=== PATIENT | male | born 2000 | race Caucasian/White ===

== ENCOUNTER 2024-02-24 16:45 | Emergency (ER) | payer OTHER, SELFPAY ==
[2024-02-24 16:47] VITALS: BP 123/64
[2024-02-24 17:14] VITALS: BMI 26.2
[2024-02-24 17:20] VITALS: BP 119/61
[2024-02-24 18:08] VITALS: BP 102/67
--- NOTE | 2024-02-24 23:14 | ED.GENMED ---
History of Present Illness
General
Chief Complaint: Head Injury
Source: patient
Exam Limitations: none
Time Seen by Provider: 02/24/24 17:43
Nursing documentation reviewed up to this point in time: agreed with
History of Present Illness
History of Present Illness:
Patient states he hit the top of his head on a metal light bar while running across a stage. No LOC. Complains of headache. ALso notes pain and bruising to his left medial knee. 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
Brought to eD by family for eval.
Past History
Past History
ED Past Medical History: None
ED Past Surgical History: None
Review of Systems
Review of Systems
Allergies reviewed?: Yes
All Other Systems: ROS reviewed and negative except as documented in HPI and ROS
Constitutional: Reports no symptoms
EENT: Reports no symptoms
Respiratory: Reports no symptoms
Cardiac: Reports no symptoms
ABD/GI: Reports no symptoms
Musculoskeletal: Reports joint pain (Pain to left medial knee)
Skin: Reports other (bruising left medial knee)
Neurological: Reports headache
Psychiatric: Reports no symptoms
Phy Exam
General Physical Exam
General Presentation: well appearing and no apparent distress
General age: appears stated age
General Skin: warm and dry
General Habitus: normal
General Mental: alert
General Hydration: appears well hydrated
ENT Exam
ENT Exam: EOMI, TM's normal and neck supple
Eye Exam
Eye Exam: PERRL, EOMI, conjunctiva normal, disc sharp and globe normal
Neurological Exam
Neurological Exam: alert, oriented x3, CN II-XII intact, no motor deficits, no sensory deficits and speech normal
Colon Coma Scale
Eye Opening: Spontaneous
Verbal Response: Oriented
Motor Response: Obeys Commands
GCS Total Score: 15
Mental
Mental Status: oriented to person, oriented to place, oriented to time and usual mental status
Describe Speech: normal speech
Cranial
Cranial Nerves: normal
EOM (CN3/4/6): intact
Motor
Seizure Activity: none
Gait: normal
Tremors: none
Right upper extremity: 4
Right lower extremity: 4
Left upper extremity: 4
Left lower extremity: 4
Bilateral upper extremities: 4
Bilateral lower extremities: 4
Sensory
Sensory Exam: intact
Cerebellar
Cerebellar Function: normal finger to nose, normal heel to dixon and normal Romberg test
Musculoskeletal Exam
Musculoskeletal Exam: full ROM and neuro vasc intact
Skin Exam
Skin Exam: normal color, warm/dry and no rash
Psychiatric Exam
Psychiatric Exam: normal mood/affect
Course
Orders/Labs/Results
Orders:
Orders
02/24/24 18:06
Knee, Left 4 or More Views [CR Knee - Left 4 Or More View*] Urgent
Comment:
Reason For Exam: trauma
Vital Signs
Initial and Last Documented VS:
Initial Vital Signs
Temp Pulse Resp BP Pulse Ox
98.0 F 91 16 123/64 98
02/24/24 16:47 02/24/24 16:47 02/24/24 16:47 02/24/24 16:47 02/24/24 16:47
Last Documented Vital Signs
Temp Pulse Resp BP Pulse Ox
98.0 F 79 16 102/67 98
02/24/24 16:47 02/24/24 18:08 02/24/24 18:08 02/24/24 18:08 02/24/24 18:08
*Radiology
Radiology exam reviewed: radiology read reviewed
*Pulse Oximetry
Patient hypoxic: no
*Critical Care Note
Total Time (30-74mins, 75-104mins- exclusive of procedures): Not Applicable
ED Attending Note
-
Portions of this chart may have been created with voice recognition software.� Occasional wrong word or��sound alike� substitutions may have occurred due to the inherent limitations of voice recognition software.
Discharge Plan
Departure
Patient Disposition: Home (Routine Discharge)
Date of Disposition: 02/24/24
Time of Disposition: 18:54
Patient with high blood pressure during this ER visit?: No
Condition: Good
Covid-19: Not Applicable
Discharge Problem:
Head injury
Instructions: Head Injury in Adults (DC), Using Cold for Pain, Contusion
Referrals:
Jose De Jesus Hameed MD [Active] - Call in 1-3 days for appt
NONE,* [Family Provider] -
Interventions
Interventions:
*Risk Screen - Suicide Last Done: 02/24/24 17:14
*General Assessment Last Done: 02/24/24 17:14
*Neglect/Abuse Screening Last Done: 02/24/24 17:14
ED- Fall Risk Assessment Last Done: 02/24/24 17:14
*ED COVID-19 Vaccine History Last Done: 02/24/24 17:14
*Nursing Disposition Last Done: 02/24/24 19:10
ED- Neurological Assessment Last Done: 02/24/24 19:10
ED-Skin Assessment Last Done: 02/24/24 19:10
Discharge Date and Time
Discharge Date/Time: 02/24/24 19:10
Print Language: PASHTO
Musculoskeletal Injury Exam
Musculoskeletal Injury Exam
Left Medial Knee:
Pain with Movement?: Moderate
Tender to palpation?: Moderate
Soft tissue swelling?: None
External deformity and angulation?: None
Joint effusion?: None
Contusion?: Moderate
Hematoma-local bleeding into tissue?: Mild
Strain- Sprain- Tear (Connective tissue injury)?: None
Crepitus with movement?: No
Joint instability?: No
Malalignment/deformity?: No
Range of motion: Full
Distal skin color and temperature: normal-warm & good color
Capillary Refill: normal
Normal distal neurovascular exam?: Yes
== END 2024-02-24 19:10 | disposition home or self-care (01) ==
LOC: EMR 16:45
PROVIDERS: EMERGENCY PHYSICIAN Emergency Medicine
DX: S09.90XA Unspecified injury of head, initial encounter (principal); W22.8XXA Striking against or struck by other objects, initial encounter; Y93.02 Activity, running
CPT/HCPCS: 99283; 73564

== ENCOUNTER 2024-11-28 22:26 | Emergency (ER) | payer BC, SELFPAY ==
[2024-11-28 22:30] VITALS: BP 125/88
[2024-11-28 23:55] VITALS: BP 125/78
--- NOTE | 2024-11-29 00:12 | ED.GENMED ---
History of Present Illness
General
Chief Complaint: Male Genito-Urinary Symptoms
Source: patient
Exam Limitations: none
Time Seen by Provider: 11/28/24 22:48
Nursing documentation reviewed up to this point in time: agreed with
History of Present Illness
History of Present Illness:
24-year-old male presents emergency ferment due to right testicular pain. He was climbing up a ladder when he began having pain on the right side.
Past History
Past History
ED Past Medical History: None
ED Past Surgical History: None
Social History
Tobacco: Non-smoker
Alcohol: None
Drug: None
Review of Systems
Review of Systems
Allergies reviewed?: Yes
All Other Systems: Not applicable
Constitutional: Reports no symptoms
EENT: Reports no symptoms
Respiratory: Reports no symptoms
Cardiac: Reports no symptoms
ABD/GI: Reports no symptoms
: Reports other (Right testicular pain)
Musculoskeletal: Reports no symptoms
Skin: Reports no symptoms
Neurological: Reports no symptoms
Endocrine: Reports no symptoms
Hematologic/Lymphatic: Reports no symptoms
Psychiatric: Reports no symptoms
Phy Exam
Physical Exam
Physical Exam:
Physical Exam
General: no apparent distress, not acutely ill
Neck: supple. no meningeal signs. normal posterior pharynx
Heart: equal radial pulses.
HEENT: Pupils equal round reactive to light, EOMI
Lungs: no acute respiratory distress.
Abdomen: Nondistended, not tender. no CVAT
Neuro: alert and oriented. no focal neurological deficits
Skin: no rash
Psychiatric: well kept. interactive and cooperative
Extremities: no edema. good distal pulses
Genitourinary Exam Male
Exam Male: circumcised, no CVAT, no discharge, normal external genitalia, normal testicular exam, no evidence of trauma, no lesions, no testicular swelling and no testicular tenderness
Course
Orders/Labs/Results
Orders:
Orders
11/28/24 22:34
US Scrotum Urgent
Comment: rt. testicle
Reason For Exam: rt. sided testicular pain
Vital Signs
Initial and Last Documented VS:
Initial Vital Signs
Temp Resp BP Pulse Ox
98.7 F 16 125/88 98
11/28/24 22:30 11/28/24 22:30 11/28/24 22:30 11/28/24 22:30
Last Documented Vital Signs
Temp Resp BP Pulse Ox
98.7 F 16 125/88 98
11/28/24 22:30 11/28/24 22:30 11/28/24 22:30 11/28/24 22:30
MDM/Problems Addressed
Differential Diagnosis Includes:
Testicular torsion, hernia
MDM/Problems Addressed:
24-year-old male with right testicular pain, no signs of torsion.
*Radiology
Radiology exam reviewed: radiology read reviewed (Scrotal ultrasound normal except small bilateral hydroceles)
*Pulse Oximetry
Patient hypoxic: no
*Critical Care Note
Total Time (30-74mins, 75-104mins- exclusive of procedures): Not Applicable
Patient Management
Social determinants of health affecting care: Living situation
Escalation/DeEscalation of care consider admission/obs:
Admit not indicated
ED Attending Note
-
Portions of this chart may have been created with voice recognition software.� Occasional wrong word or��sound alike� substitutions may have occurred due to the inherent limitations of voice recognition software.
Discharge Plan
Departure
Patient Disposition: Home (Routine Discharge)
Date of Disposition: 11/29/24
Time of Disposition: 00:18
Patient with high blood pressure during this ER visit?: Yes
Condition: Good
Discharge Problem:
Right testicular pain
Instructions: Groin strain, BLOOD PRESSURE
Referrals:
Gabale,Morales D., MD [Active, Urology] - Call in 1-3 days for appt
Interventions
Interventions:
*Risk Screen - Suicide Last Done: 11/28/24 22:30
*General Assessment Last Done: 11/28/24 22:30
*Neglect/Abuse Screening Last Done: 11/28/24 22:30
*ED COVID-19 Vaccine History Last Done: 11/28/24 22:30
Discharge Date and Time
Print Language: PERSIAN
== END 2024-11-29 00:35 | disposition home or self-care (01) ==
LOC: EMR 22:26
PROVIDERS: EMERGENCY PHYSICIAN Emergency Medicine
DX: N50.811 Right testicular pain (principal)
CPT/HCPCS: 99284; 76870; 93976